=== PATIENT | female | born 1955 | race Caucasian/White ===

== ENCOUNTER 2021-01-26 16:58 | Emergency (ER) | payer BC ==
--- NOTE | 2021-01-26 17:29 | EDM.PDOC ---
ED HPI GENERAL MEDICAL PROBLEM - General Stated Complaint: CHEST PAIN Time Seen by Provider: 01/26/21 17:28 Source of Information: Reports: Patient, RN, RN Notes Reviewed History Limitations: Reports: No Limitations - History of Present Illness INITIAL COMMENTS - FREE TEXT/NARRATIVE: Wendy is a 65 y/o female with a history of ovarian and lung cancer, currently in remission, who presents to the ED via personal vehicle with daughter for complaints of chest pain and shortness of breath. The patient reports her pain began at noon and has maintained in severity over that time. She took one dose of Nitro SL at 1300 which reduced her pain from 8/10 to 2/10. She denies recent illness, fever, shaking chills, vision changes, dizziness, palpitations, dyspepsia, nausea, vomiting, or diarrhea. An additional dose of Nitro was administered at 1600 for return of pain, which the patient feels is waxing and waning in severity; she currently rates her pain at a 2/10. She denies tobacco, alcohol, or recreational drug use. Chest Pain Score (Numeric/FACES): 5 - Related Data Allergies Allergy/AdvReac Type Severity Reaction Status Date / Time aloe Allergy Hives Verified 01/26/21 17:39 Iodinated Contrast Media Allergy Itching Verified 01/26/21 17:39 iodine Allergy Rash Verified 01/26/21 17:39 nylon Allergy Rash Verified 01/26/21 17:39 Home Meds: Home Meds Aspirin [Ecotrin] 81 mg PO DAILY 07/29/13 [History] EPINEPHrine [Epipen 2-Moshe] 0.3 mg IJ ASDIRECTED PRN 07/29/13 [History] Hydrocortisone/Iodoquinol/Aloe [Vytone Cream Packet] 2 gm TP BID 07/29/13 [History] Immun Glob G/Gly/Gluc/Iga 0-50 [Gammagard S-D] 20 gm IV .Q3WKS 07/29/13 [History] Escitalopram [Lexapro] 20 mg PO DAILY 09/02/13 [History] Albuterol/Ipratropium [DuoNeb 3.0-0.5 MG/3 ML] 1 unit INH Q6H PRN 03/28/20 [History] Cholecalciferol (Vitamin D3) [Vitamin D3] 5,000 units PO DAILY 03/28/20 [History] busPIRone [Buspar] 10 mg PO BID 03/28/20 [History] Clopidogrel Bisulfate [Plavix] 75 mg PO DAILY 01/26/21 [History] Metoprolol Succinate 50 mg PO DAILY 01/26/21 [History] Nitroglycerin 0.4 mg SL ASDIRECTED 01/26/21 [History] atorvaSTATin [Lipitor] 10 mg PO BEDTIME 01/26/21 [History] Past Medical History HEENT History: Reports: Impaired Vision Respiratory History: Reports: COPD [employer] History: Reports: Oncologic (Cancer) History: Reports: Cervix, Lung, Other (See Below) Other Oncologic History: rectal ED ROS GENERAL - Review of Systems Review Of Systems: Comprehensive ROS is negative, except as noted in HPI. ED EXAM, GENERAL - Physical Exam Exam: See Below Exam Limited By: No Limitations General Appearance: Alert, Cachetic (Chronically-ill appearing female) Eye Exam: Bilateral Eye: EOMI, Normal Inspection, PERRL (2mm) Ears: Normal External Exam, Normal Canal, Hearing Grossly Normal, Normal TMs Ear Exam: Bilateral Ear: Auricle Normal, Canal Normal, TM normal Nose: Normal Inspection, Normal Mucosa, No Blood Throat/Mouth: Normal Voice, No Airway Compromise. No: Normal Inspection, Normal Oropharynx (Dry mucous membranes) Head: Atraumatic, Normocephalic Neck: Normal Inspection, Full Range of Motion Respiratory/Chest: No Respiratory Distress, No Accessory Muscle Use, Chest Non- Tender, Decreased Breath Sounds. No: Crackles, Rales, Rhonchi, Wheezing, Stridor Cardiovascular: Normal Peripheral Pulses, Regular Rate, Rhythm, No Edema, No Gallop, No JVD, No Murmur, No Rub Peripheral Pulses: 2+: Radial (L), Radial (R), Dorsalis Pedis (L), Dorsalis Pedis (R) GI/Abdominal: Normal Bowel Sounds, Soft, No Distention, No Abnormal Bruit, No Mass. No: Guarding, Rigid, Rebound (Female) Exam: Deferred Rectal (Female) Exam: Deferred Back Exam: Normal Inspection, Full Range of Motion. No: CVA Tenderness (L), CVA Tenderness (R) Extremities: Normal Inspection, Normal Range of Motion, Non-Tender, No Pedal Edema, Normal Capillary Refill Neurological: Alert, Oriented, CN II-XII Intact, Normal Cognition, Normal Gait, No Motor/Sensory Deficits Psychiatric: Normal Affect, Normal Mood Skin Exam: Warm, Dry, Intact, Normal Color, No Rash. No: Cyanosis, Jaundice, Mottled, Pallor #1 Interpretation EKG Date: 01/26/21 Time: 17:08 Rhythm: NSR Rate (Beats/Min): 65 [place]: Normal P-Wave: Present QRS: Normal ST-T: Normal QT: Normal [place]/PQ Interval: 0.189 Course - Vital Signs Last Recorded V/S: Last Vital Signs Temp 97.8 F 01/26/21 17:45 Pulse 65 01/26/21 17:45 Resp 16 01/26/21 17:45 BP 144/82 H 01/26/21 17:45 Pulse Ox 97 01/26/21 17:45 - Orders/Labs/Meds Labs: Laboratory Tests 01/26/21 01/26/21 Range/Units 17:13 17:13 WBC 6.6 (5.0-10.0) 10^3/uL RBC 4.84 (4.2-5.4) 10^6/uL Hgb 14.8 (12.0-16.0) g/dL Hct 45.5 (37.0-47.0) % MCV 94.0 D (80-100) fL MCH 30.6 (27.0-34.0) pg MCHC 32.5 L (33.0-35.0) g/dL Plt Count 210 (150-450) 10^3/uL Neut % (Auto) 56.5 (42.2-75.2) % Lymph % (Auto) 31.5 (20.5-50.1) % B[place] % (Auto) 10.3 H (2-8) % Eos % (Auto) 1.4 (1.0-3.0) % Baso % (Auto) 0.3 (0.0-1.0) % Sodium 141 (136-145) mmol/L Potassium 3.4 L (3.5-5.1) mmol/L Chloride 104 (98-107) mmol/L Carbon Dioxide 25 (21-32) mmol/L Anion Gap 15.4 H (7-13) mEq/L BUN 8 (7-18) mg/dL Creatinine 0.82 (0.55-1.02) mg/dL Est Cr Clr Drug Dosing TNP Estimated GFR (MDRD) > 60 BUN/Creatinine Ratio 9.8 (No establ ref range) Glucose 89 (70-99) mg/dL Calcium 8.9 (8.5-10.1) mg/dL Magnesium 2.0 (1.8-2.4) mg/dL Total Bilirubin 0.7 (0.2-1.0) mg/dL AST 22 (15-37) U/L ALT 23 (14-59) U/L Alkaline Phosphatase 114 (46-116) U/L Troponin I High Sens 14 (<=51) pg/mL C-Reactive Protein < 0.2 (0.0-0.9) mg/dL B-Natriuretic Peptide 46 (0-100) pg/ml Total Protein 7.8 (6.4-8.2) g/dL Albumin 3.7 (3.4-5.0) g/dL Globulin 4.1 Albumin/Globulin Ratio 0.9 Amylase 43 (25-115) U/L Lipase 172 (73-393) U/L Ethyl Alcohol < 3 (0) mg/dL - Radiology Interpretation Free Text/Narrative:: [facility] Final Radiology Report Call: [phone] assistance Online chat: [email or web address] Name: WENDY PICKARD Age: 65Years F Date: 01/26/2021 SSN: -- : [id number] Study: CR CHEST 1V FRONTAL Requesting Physician: Angela Gonzáles Images: 2 Addl Studies: Provided Clinical History: Chest pain Contrast: Contrast Medium: Contrast Amount: Contrast Method: Page 1 of 2 PROCEDURE INFORMATION: Exam: XR Chest Exam date and time: 01/26/2021 5:35 PM Age: 65 years old Clinical indication: Other: Chest pain TECHNIQUE: Imaging protocol: XR of the chest. Views: 1 view. COMPARISON: No relevant prior studies available. FINDINGS: Lungs: The lungs are moderately hyperinflated. There are scattered linear densities in both lungs, particularly at the right base, which are likely fibrotic or atelectatic. There is no evidence of focal pulmonary consolidation. There is no evidence of pulmonary edema. Pleural spaces: There is pleural thickening and/or loculated fluid at the right base, right base pleural abnormalities are likely postoperative. Heart/Mediastinum: The heart is not enlarged. Postoperative change about the right tereza suggest partial right pneumonectomy. Bones/joints: No acute bony findings are identified. IMPRESSION: 1. Postoperative chest, prior partial right pneumonectomy suspect. 2. Pleural and parenchymal abnormality right base may be postoperative. 3. Hyperinflation suggests underlying COPD. 4. Consider surveillance. Thank you for allowing us to participate in the care of your patient. Dictated and Authenticated by: Colby Pulliam MD 01/26/2021 6:15 PM Central Time ([place] & [place]) Departure - Departure Time of Disposition: 18:31 Disposition: Home, Self-Care 01 Condition: Fair Clinical Impression: Atypical chest pain Instructions: Nonspecific Chest Pain, Adult Referrals: PCP,None [Primary Care Provider] - Forms: ED Department Discharge Additional Instructions: 1.) Follow up with your primary care provider in 1-2 days regarding today's visit. 2.) Increase your water intake to stay hydrated. 3.) Return to the emergency department with any return of symptoms, including chest pain, shortness of breath, dizziness, palpitations, or vision changes.
[2021-01-26 17:42] LABS: ANION GAP 15.4 mEq/L (7-13); CHLORIDE,CL 104 mmol/L (98-107); SODIUM,NA 141 mmol/L (136-145)
--- NOTE | 2021-01-26 18:15 | CR ---
PROCEDURE INFORMATION: Exam: XR Chest Exam date and time: 01/26/2021 5:35 PM Age: 65 years old Clinical indication: Other: Chest pain TECHNIQUE: Imaging protocol: XR of the chest. Views: 1 view. COMPARISON: No relevant prior studies available. FINDINGS: Lungs: The lungs are moderately hyperinflated. There are scattered linear densities in both lungs, particularly at the right base, which are likely fibrotic or atelectatic. There is no evidence of focal pulmonary consolidation. There is no evidence of pulmonary edema. Pleural spaces: There is pleural thickening and/or loculated fluid at the right base, right base pleural abnormalities are likely postoperative. Heart/Mediastinum: The heart is not enlarged. Postoperative change about the right tereza suggest partial right pneumonectomy. Bones/joints: No acute bony findings are identified. IMPRESSION: 1. Postoperative chest, prior partial right pneumonectomy suspect. 2. Pleural and parenchymal abnormality right base may be postoperative. 3. Hyperinflation suggests underlying COPD. 4. Consider surveillance.
== END 2021-01-26 18:55 | disposition home or self-care (01) ==
LOC: DL.ED 16:58
DX: R07.89 Other chest pain (principal); J44.9 Chronic obstructive pulmonary disease, unspecified; Z91.048 Other nonmedicinal substance allergy status; Z91.041 Radiographic dye allergy status; Z79.82 Long term (current) use of aspirin; Z79.899 Other long term (current) drug therapy
CPT/HCPCS: 36415; 71045; 80053; 80307; 82150; 83690; 83735; 83880; 84484; 85025; 86140; 93005; 99285-25